=== PATIENT | female | born 1955 | race Caucasian/White ===

== ENCOUNTER → 2016-08-15 | Outpatient (CLI) | payer OTHER ==
[~2016-08-15] MED LIST: ALEVE; CELEBREX PO; LASIX PO; PHENERGAN PO; POTASSIUM CHLO10 ME1
--- NOTE | ~2016-08-15 | US24 ---
[facility] A Service of [facility] RADIOLOGY TEXT RESULTS PATIENT: ELLIOT RIVERS LOCATION: [facility] : 59 UNIT #: [id number] AGE: [address]: Dejan Chen MD SEX: F ORDER DR: [id number] [facility] [address] [place], [place] [address] [id number] O MR#: [id number] Acc #: [id number] NAME: ELLIOT RIVERS : 1955 SEX: F STUDY DATE/TIME: 08/15/2016 13:54 UNIT: [facility] ROOM: STUDY DESCRIPTION: US Breast Unilateral Attending Physician: Dejan Chen M.D. Referring Physician: Dejan Chen M.D. Ordering Physician: Dejan Chen M.D. Primary Care Physician: Dejan Chen M.D. MEDICAL IMAGING REPORT This report is preliminary unless electronic signature is present EXAM Left breast ultrasound Comparison Left breast ultrasound on November 18, 2014 as well as bilateral diagnostic mammogram on August 15, 2016, left diagnostic mammogram on November 18, 2014 and screening mammogram on October 26, 2014. INDICATIONS 61-year-old female with probably benign findings in the left breast. 6-month follow-up was recommended but the patient is just now returning for a followup imaging. FINDINGS/IMPRESSION Please see separately dictated report of bilateral diagnostic mammography on the same date for full sonographic findings in left breast today as well as final impression and recommendations. In short there is a hypoechoic round mass on sonography which is stable mammographically going back to October of 2014. This is just short of 2-year stability and is a probably benign finding for which left breast ultrasound is recommended in November of this year to definitively document overall 2-year stability, at which time this could be declared definitively benign and the patient can return to screening mammography. Findings and recommendations were discussed with the patient upon termination of today's exam. Patients over the age of 40 are entered into a reminder system with target due date for the next mammogram. A result letter will also be sent to the patient. BIRADS: 3. Probably benign finding; short interval followup suggested. [facility] A Service of [facility] RADIOLOGY TEXT RESULTS PATIENT: ELLIOT RIVERS LOCATION: [facility] : 59 UNIT #: [id number] AGE: [address]: Dejan Chen MD SEX: F ORDER DR: Dictated by... Freeman Christensen M.D. THIS IS AN ELECTRONICALLY VERIFIED REPORT Freeman Christensen M.D. at 08/19/2016 5:49 PM FLOR/krisr TD: 08/15/2016 20:04 JOB #: [id number] MEDICAL IMAGING REPORT Page 1 of 1 COPY
--- NOTE | ~2016-08-15 | MY6 ---
[facility] A Service of [facility] RADIOLOGY TEXT RESULTS PATIENT: ELLIOT RIVERS LOCATION: [facility] : 59 UNIT #: [id number] AGE: [address]: Dejan Chen MD SEX: F ORDER DR: [id number] [facility] [address] [place], [place] [address] [id number] O MR#: [id number] Acc #: [id number] NAME: ELLIOT RIVERS : 1955 SEX: F STUDY DATE/TIME: 08/15/2016 13:01 UNIT: [facility] ROOM: STUDY DESCRIPTION: MY Mammogram Dx Dig Dwight Attending Physician: Dejan Chen M.D. Referring Physician: Dejan Chen M.D. Ordering Physician: Dejan Chen M.D. Primary Care Physician: Dejan Chen M.D. MEDICAL IMAGING REPORT This report is preliminary unless electronic signature is present EXAM Bilateral digital diagnostic mammogram COMPARISON Bilateral digital diagnostic mammogram dated November 18, 2014 and screening mammogram dated October 26, 2014. INDICATION 61-year-old female with a probably benign mass in the left breast which was sonographically occult. Patient also had a suspected lipoma seen in the left breast on sonography in November 2014. 6-month followup was recommended but the patient is just now returning. FINDINGS Bilateral CC, MLO and ML views were obtained. Spot compression CC and MLO views were also obtained. There are scattered fibroglandular densities. There are no suspicious findings in the right breast. In the posterior third of the left breast approximately the 10 o'clock position there is a stable round 5 mm partly circumscribed partly obscured mass measuring 5 mm in diameter. Sonographic evaluation was performed to evaluate the stable mammographic mass and to document stability of the suspected lipoma in the 9 o'clock left breast. At the 10 o'clock position in the left breast 7 cm from nipple there is a round circumscribed hypoechoic mass without posterior acoustic features measuring 4 mm by 4 mm x 5 mm. This is in the 10 o'clock position 7 cm from the nipple. This corresponds to a mammographic mass which is stable from November 2014. The technologist measures a structure in the 9 o'clock left breast approximately 1 cm from the nipple which in real time appears to reflect a normal fat lobule although it appears slightly hyperechoic. This is benign. Technologist measures a separate structure in the 10 o'clock left breast measuring 1 cm x 0.4 cm x 0.8 cm which in real time is consistent with a fat lobule. IMPRESSION [facility]. [facility] A Service of [facility] RADIOLOGY TEXT RESULTS PATIENT: ELLIOT RIVERS LOCATION: [facility] : 59 UNIT #: [id number] AGE: [address]: Dejan Chen MD SEX: F ORDER DR: 1. No mammographic evidence of malignancy in the right breast. 2. Stable round circumscribed mass in the 10 o'clock left breast as compared to October 2014. This remains a probably benign finding for which followup left breast ultrasound is recommended in November 2016 to document overall 2-year stability. Findings and recommendations were discussed with the patient upon termination of today's exam. Patients over the age of 40 are entered into a reminder system with target due date for the next mammogram. A result letter will also be sent to the patient. BIRADS: 3. Probably benign finding; short interval followup suggested. Dictated by... Freeman Christensen M.D. THIS IS AN ELECTRONICALLY VERIFIED REPORT Freeman Christensen M.D. at 08/19/2016 5:49 PM FLOR/nelson TD: 08/15/2016 19:45 JOB #: [id number] MEDICAL IMAGING REPORT Page 1 of 1 COPY
== END | disposition home or self-care (01) ==
LOC: CMAM 12:41
DX: R92.8 Other abnormal and inconclusive findings on diagnostic imaging of breast (principal); N63 Unspecified lump in breast
CPT/HCPCS: 76641; G0204